=== PATIENT | female | born 1975 | race Caucasian/White ===

== ENCOUNTER 2024-01-19 18:14 | Observation (INO) | payer BC, SELFPAY ==
[2024-01-19] VITALS (10 sets, daily range): BP systolic 119–150; BP diastolic 67–90; BMI 34.8; BMI 34.6
[2024-01-19 12:45] LABS: % Basophils 0.9 % (0-2); % Eosinophils 9.5 % (0-6); % Immature Granulocytes 0.4 % (0-0.5); % Lymphocytes 23.5 % (20.5-51.1); % Monocytes 6.3 % (1.7-9.3); % Neutrophils 59.4 % (42.2-75.2); Absolute Basophils 0.1 10^3/uL (0-0.2); Absolute Eosinophils 0.5 10^3/uL (0-0.7); Absolute Lymphocytes 1.3 10^3/uL (1.2-3.4); Absolute Monocytes 0.4 10^3/uL (0.1-0.6); Absolute Neutrophils 3.4 10^3/uL (1.4-6.5); Hematocrit 37.9 % (37.0-47.0); Mean Corp Hgb Conc. 34.3 g/dL (33.0-37.0); Mean Corpuscular Hgb 29.5 pg (27.0-31.0); Mean Corpuscular Volume 86.1 fL (81.0-99.0); Mean Platelet Volume 9.8 fL (7.4-10.4); Nucleated Red Blood Cells % 0 %; Platelet Count 299 10^3/uL (130-400); Red Cell Dist. Width 12.7 % (11.5-14.5); White Blood Cell Count 5.7 10^3/uL (4.8-10.8)
[2024-01-19 12:59] LABS: ALT (SGPT) 27 U/L (0-35); AST (SGOT) 31 U/L (14-36); Albumin 4.6 g/dl (3.5-5.0); Alkaline Phosphatase 69 U/L (38-126); Blood Urea Nitrogen 10 mg/dl (7-17); Calcium 9.8 mg/dl (8.4-10.2); Carbon Dioxide 27 mmol/L (22-30); Chloride 101 mmol/L (98-107); Glucose 100 mg/dl (70-99); Potassium 4.1 mmol/L (3.5-5.1); Sodium 137 mmol/L (135-145); Total Protein 7.9 g/dl (6.3-8.2); eGFR > 60.00
--- NOTE | 2024-01-19 14:54 | ED.CVA ---
History of Present Illness
General
Chief Complaint: CVA/TIA Symptoms
Source: patient and family
Exam Limitations: none
Time Seen by Provider: 01/19/24 13:43
Nursing documentation reviewed up to this point in time: agreed with
Onset of Stroke Symptoms
Onset of symptoms known: Yes
Date of onset of symptoms: 01/19/24
Time of onset of symptoms: 06:30
Travel History
Have you had any contact with someone who has COVID-19?: No
Do you have any symptoms of coronavirus? Fever > 100 degrees, chills, cough, shortness of breath, sore throat, loss of taste or smell, muscle aches, or headache?: No
History of Present Illness
History of Present Illness:
48-year-old female with past medical history of retinal issues follow-up with ophthalmology presenting to the emergency department today with concerns of complete vision loss to the left side lasting 5 minutes earlier this morning. Full resolution
since. She was seen by ophthalmology prior to arrival here who did a evaluation did not show any obvious cause of the eye itself no signs of retinal issues and no obvious findings on funduscopic evaluation. There were concern of potential
strokelike syndrome.
Review of Systems
Review of Systems
Allergies reviewed?: Yes
All Other Systems: ROS reviewed and negative except as documented in HPI and ROS
Phy Exam
Physical Exam
Physical Exam:
GENERAL: Alert , in no apparent distress
EYE: Normal funduscopic evaluation, pupils equal and reactive
NECK: Supple, no significant adenopathy.
ENT: o/p clr, mmm.
CARDIAC: Regular rate and rhythm .
LUNGS: Clear breath sounds bilaterally, no acute respiratory distress, no wheezes/rales/rhonchi
ABDOMEN: Soft, without focal tenderness, no r/g, no cvat
NEUROLOGICAL: Alert and oriented, no focal neuro deficits
SKIN: Warm and dry, skin intact.
MUSCULOSKELETAL: No edema, well perfused.
PSYCH: Normal and appropriate interaction.
Course
Orders/Labs/Results
Orders:
Orders
01/19/24 12:27
CT Head W/o Iv Contrast Urgent
Comment:
Reason For Exam: floaters earlier this morning
01/19/24 12:33
Cardiovascular Evaluation Urgent
Comment: ADD
Complete Blood Count/With Diff Urgent
Comprehensive Metabolic Panel Urgent
Erythrocyte Sed Rate Urgent
Comment: ADD ON
Glycohemoglobin (HgbA1c) Urgent
01/19/24 14:34
Add On- LAB Urgent
Tests Added?: esr
01/19/24 14:42
EKG [Electrocardiogram (*1)] Urgent
Reason for Study: TIA/Stroke
EKG- Treatment ONCE
01/19/24 15:04
CT Head & Neck Angio W/wo IV Urgent
Reason For Exam: monocular vision loss left sided, NEURO rec'd CTA
01/19/24 16:07
NEUROLOGY CONSULT Urgent
Consulting Provider: Gelacio Saini
Was physician already notified: Yes
01/19/24 16:08
Add On- LAB Routine
Comments:: Please add to today's labs or draw as routine
Tests Added?: TSH reflex, Ferritin, Folate, Vit. B12, ESR, CRP
MR Brain W/o & With Contrast Routine
Comment:
Reason For Exam: special attention to orbits, visual loss on left
Recent pill cam endoscopy?: No
01/19/24 16:09
Add On- LAB Routine
Comments:: Please add to today's labs or draw as routine
Tests Added?: BRYN, Lyme, HgbA1C
01/19/24 16:10
Add On- LAB Routine
Comments:: Please add to today's labs or draw as routine
Tests Added?: lipid profile
01/19/24 16:27
BRYN, IgG Reflex to HEp-2 [S] Routine
Comment: TO BE DRAWN
C-Reactive Protein Routine
Comment: TO BE DRAWN
Ferritin Routine
Comment: TO BE DRAWN
Folate Routine
Comment: TO BE DRAWN
Lyme Progressive Routine
Comment: TO BE DRAWN
TSH Reflex To Free T4 Routine
Comment: TO BE DRAWN
Vitamin B12 Routine
Comment: TO BE DRAWN
01/19/24 17:00
Aspirin Chewable [Low Strength Aspirin] 81 mg PO DAILY
01/19/24 17:11
Admit/Transfer Patient As Directed
Co-Sign Provider:
Level of Care: Observation services
Assign to:: Telemetry
Physician / Group: Kacey Ansari
Diagnosis: Transient vision loss unclear etiology
Reason for Telemetry: CVA/TIA
Date to Stop Telemetry: 01/22/24
Time to Stop Telemetry: 11:00
01/19/24 17:15
Code Status As Directed
Resuscitation Status: Full Code
01/22/24 11:00
DC Protocol for Telemetry ONCE
Abnormal Lab Results
01/19/24
12:33
Eosinophils % 9.5 H %
(0-6)
Glucose 100 H mg/dl
(70-99)
01/19/24 12:33
01/19/24 12:33
Vital Signs
Initial and Last Documented VS:
Initial Vital Signs
Temp Pulse Resp BP Pulse Ox
98.8 F 72 17 150/90 99
01/19/24 12:24 01/19/24 12:24 01/19/24 12:24 01/19/24 12:24 01/19/24 12:24
Last Documented Vital Signs
Temp Pulse Resp BP Pulse Ox
98.8 F 72 17 141/89 99
01/19/24 12:24 01/19/24 12:24 01/19/24 12:24 01/19/24 15:00 01/19/24 15:45
MDM/Problems Addressed
MDM/Problems Addressed:
48-year-old female presenting to the emergency department today with concerns of complete vision loss for roughly 5 minutes earlier today. She was seen by ophthalmology and they do not believe this is an specifically eye related issue and is
concerned potential strokelike process or amaurosis. She is now asymptomatic at this clinic have very vague blurred vision though. 20/60 in the left eye 20/25 on the right side. Had normal pressures prior to arrival at the [facility]. ESR
added but seems less likely to be temporal arteritis no headache no discomfort on exam. Plan to admit for further assessment.
*Critical Care Note
Total Time (30-74mins, 75-104mins- exclusive of procedures): Not Applicable
ED Attending Note
-
Portions of this chart may have been created with voice recognition software.� Occasional wrong word or��sound alike� substitutions may have occurred due to the inherent limitations of voice recognition software.
Discharge Plan
Departure
Patient Disposition: Admit
Date of Disposition: 01/19/24
Time of Disposition: 14:57
Admit to: Telemetry
Admit to doctor: Elan
Presentation/result/management discussed w/ accepting MD/DO: Hospitalist
Patient with high blood pressure during this ER visit?: No
Condition: Good
Covid-19: Not Applicable
Discharge Problem:
Monocular vision loss
Prescriptions:
No Action
hydroxyzine HCl 25 mg tablet
25 mg PO HS
albuterol sulfate [ProAir HFA] 90 mcg/actuation Hfa Aerosol Inhaler
2 puff INHALATION R QIDPRN PRN (Reason: sob)
fluoxetine 20 mg Capsule
20 mg PO DAILY
dextroamphetamine-amphetamine [Adderall XR] 25 mg Capsule,Extended Release 24hr
25 mg PO DAILY
Referrals:
Areli Waggoner DO [Family Provider] -
Interventions
Interventions:
*Risk Screen - Suicide Last Done: 01/19/24 13:22
*General Assessment Last Done: 01/19/24 13:22
*Neglect/Abuse Screening Last Done: 01/19/24 13:22
ED- Fall Risk Assessment Last Done: 01/19/24 13:35
*ED COVID-19 Vaccine History Last Done: 01/19/24 13:22
ED- Pulmonary Assessment Last Done: 01/19/24 13:22
ED- Neurological Assessment Last Done: 01/19/24 14:14
ED- Cardiac Assessment Last Done: 01/19/24 13:22
ED Swallowing Screen Last Done: 01/19/24 13:22
Discharge Date and Time
Print Language: ITALIAN
--- NOTE | 2024-01-19 14:59 | HPS.HSE ---
Family Physician
-
Family Physician: Areli Waggoner
Chief Complaint
-
Transient left eye vision loss
History of Present Illness
48-year-old female Asthma ADHD Depression hx Fatty Liver Dz diverticulitis retinal detachment cataracts repair p/w two episodes transient vision loss left eye over the last 24 hrs lasting minutes each time. Both episodes occurring during transition
from dark to light areas. She was seen by ophthalmology outpt. Per reports, evaluation showed no obvious eye pathology causing symptoms- no signs of retinal issues or other acute abn's noted on funduscopic evaluation- prompting referral to ED for
further evaluation, possible Amaurosis fugax. Denies fever chills headaches itchy eyes, eye pain, current blurry vision or blindness, chest/abd pain palpitations, shortness of breath coughing, nausea vomiting diarrhea constipation. Wears glasses.
VSS, CT Head noted no acute abn's, labs were relatively unremarkable except for Eosinophil elevation unclear etiology.
Medical History
Past Medical History
Past Medical History: Reports Other (as above)
Past Surgical History: Reports Other (as above)
Social History
Tobacco: Non-smoker
Alcohol: None
Drug: None
Personal:
Living: With Family
Family History
Family History: Other (reports history of strokes on mother side of family)
Allergies / Home Medications
Allergies reflects when Allergies were last updated in [facility].
Home Medications with original date entered in [facility]
Allergy/Medication List:
Allergies
Allergy/AdvReac Type Severity Reaction Status Date / Time
Cephalosporins Allergy Rash Verified 01/19/24 16:25
penicillin V Allergy Unknown Verified 01/19/24 16:25
Penicillins Allergy Unknown Verified 01/19/24 16:25
Home Medications
albuterol sulfate 90 mcg/actuation aerosol inhaler (ProAir HFA) 2 puff inhalation R QIDPRN PRN sob 01/19/24
dextroamphetamine-amphetamine ER 25 mg 24hr capsule,extend release (Adderall XR) 25 mg PO DAILY 01/19/24
fluoxetine 20 mg capsule 20 mg PO DAILY 01/19/24
hydroxyzine HCl 25 mg tablet 25 mg PO HS 01/19/24
Review of Systems
-
A 12 point ROS was completed and negative except as noted: Yes
Constitutional: Reports Sleep Disturbance (as below)
Physical Exam
Vital Signs
Vital Signs
Temp Pulse Resp BP Pulse Ox
98.8 F 72 17 127/80 100
01/19/24 12:24 01/19/24 12:24 01/19/24 12:24 01/19/24 14:01 01/19/24 14:15
Physical Exam
General: Other (as below)
Laboratory Results
-
01/19/24 12:33
01/19/24 12:33
Laboratory Results
Total Bilirubin 1.0 mg/dl (0.2-1.3) 01/19/24 12:33
AST 31 U/L (14-36) 01/19/24 12:33
ALT 27 U/L (0-35) 01/19/24 12:33
Alkaline Phosphatase 69 U/L (38-126) 01/19/24 12:33
Impression/Plan
-
ROS
General: Denies fever chills night sweats unexpected weight loss
Neuro: Denies seizure shaking loss of consciousness dizziness vertigo
Psych: denies depression hallucinations confusion manic episodes
Endocrine: Denies polyuria polydipsia polyphagia heat/cold intolerance
HEENT: Denies epistaxis reports 2 episodes of transient vision loss left eye lasting for minutes at a time
Pulmonary: denies coughing hemoptysis sneezing sob dyspnea on exertion
Cardiovascular: denies chest pain palpitations leg swelling
Hematology: denies signs symptoms of anemia easy bruising/bleeding
Gastrointestinal: denies nausea vomiting diarrhea constipation hematemesis hematochezia melena
Genito-Urinary: denies retention incontinence dysuria
Musculoskeletal: denies joint pain weakness
Dermatology: denies rash laceration bruising
Physical Exam
General: No pallor, cyanosis, or jaundice.
HEENT: Throat clear. PERRLA Normocephalic atraumatic EOMI
NECK: Supple. No JVD Carotid Bruits
RESPIRATORY: Lungs clear to auscultation. No crackles wheezes stridor
CVS: S1, S2 normal. RRR. No murmur, rub or gallop.
ABDOMEN: Soft, non-tender. No distension. BS+/normal.
EXTREMITIES: No peripheral cyanosis or edema.
PROFESSIONAL BASS FISHER: AOx3
IMPRESSION:
48-year-old female Asthma ADHD Depression hx Fatty Liver Dz diverticulitis retinal detachment cataracts repair p/w two episodes transient vision loss left eye over the last 24 hrs lasting minutes each time. Both episodes occurring during transition
from dark to light areas. She was seen by ophthalmology outpt. Per reports, evaluation showed no obvious eye pathology causing symptoms- no signs of retinal issues or other acute abn's noted on funduscopic evaluation- prompting referral to ED for
further evaluation, possible Amaurosis fugax. Denies fever chills headaches itchy eyes, eye pain, current blurry vision or blindness, chest/abd pain palpitations, shortness of breath coughing, nausea vomiting diarrhea constipation. Wears glasses.
VSS, CT Head noted no acute abn's, labs were relatively unremarkable except for Eosinophil elevation unclear etiology.
PLAN:
#Transient left eye blindness unclear etiology
Telemetry observation
Neuro eval appreciated
Follow-up CTA head and neck, MRI brain
ECHO pending
empiric ASA as per neuro
lipid panel within goal
A1c pending
#Eosinophilia
Unclear etiology
Monitor for now
#Asthma
Reports well-controlled, last exacerbation in August 2023
Continue as needed albuterol inhaler
Stable respiratory status on room air
#ADHD
Continue home Adderall
#Depression/anxiety
Continue home fluoxetine, dose recently reduced as per patient
Continue home bedtime hydroxyzine
DVT prophylaxis SCDs
GI prophylaxis not indicated at this time
Meds reconciled and resume as appropriate
Full code
I spent a total of 80 minutes with the patient or on the floor. More than 50% of this time involved counseling and coordination of care.
[2024-01-19 15:06] LABS: Erythrocyte Sed Rate 16 mm/hour (0-20)
--- NOTE | 2024-01-19 15:32 | CON.NEURO ---
Neuro Assessment/Plan
Assessment
IMPRESSIONS/RECOMMENDATIONS:
Abrupt change in vision involving the left eye beginning approximately 48 hours ago
Most likely due to acephalgic migraine. Differential diagnosis would include nonarteritic ischemic optic neuropathy. Patient is not of an age for temporal arteritis.
Plan
Check CT angiogram head and neck
Check MRI of brain with special attention to orbits
Check echocardiogram
Aspirin 81 mg daily until greater information regarding patient symptomatology can be ascertained
Continue patient's usual outpatient medications
Check lipid profile, consider initiation of the use of atorvastatin
Will continue to follow patient. Thank you.
Consultation
Order
Date of Consultation: 01/19/24
Requesting Provider: Emergency department provider
Reason for Consult: Visual loss
Subjective/Objective
Subjective Data
Date of Service: January 19, 2024
Right-handed
2003 had retinal surgery in the left eye with dark curtain taking place in vision. Eventually diagnosed with retinal detachment. Subsequent surgery for cataract resection needed. Followed by laser surgery for scar tissue build-up in the eye.
Persistent floaters in vision.
New onset while in the dark 1 week ago of a triangle shape which resolved after few minutes. No associated symptoms. No change with cross-cover of either eye.
Yesterday, sudden darkness transitioning from bright to dark location which resolved within 1 minute. Recurrent even sense of lost vision today in the left eye, resolving after 1 minute at 06:30.
Patient presented to this hospital's emergency department with acute onset of retinal issues prompting referral from her water analyst.
No headache before, during or after events. Usual headaches are menstrual-related no menses since June 2023.
Objective Data
Vital Signs
Temp Pulse Resp BP Pulse Ox
37.1 C 72 17 141/89 100
01/19/24 12:24 01/19/24 12:24 01/19/24 12:24 01/19/24 15:00 01/19/24 15:00
Lab Results
01/19/24 12:33
01/19/24 12:33
Sodium 137 mmol/L (135-145) 01/19/24 12:33
Potassium 4.1 mmol/L (3.5-5.1) 01/19/24 12:33
BUN 10 mg/dl (7-17) 01/19/24 12:33
Glucose 100 mg/dl (70-99) H 01/19/24 12:33
Calcium 9.8 mg/dl (8.4-10.2) 01/19/24 12:33
Patient Allergies
Cephalosporins Allergy (Unverified 01/19/24 12:24)
Rash
penicillin V Allergy (Unverified 01/19/24 12:24)
Unknown
Penicillins Allergy (Unverified 01/19/24 12:24)
Unknown
Review of Systems
-
History Source: Patient
All other systems: Reviewed and negative
EENT: Decreased Vision; Negative Swallowing Difficulty
Respiratory: Negative Trouble Breathing
Cardiac: Negative Chest Pain
Abdomen/GI: Negative Incontinence of Stool
Genitourinary: Negative Incontinence
Musculoskeletal: Negative Back Pain or Neck Pain
Neuro: Negative Dizzy or Headache
Physical Exam
-
General: No Apparent Distress and Appears Stated Age
Eyes: OU Absent Papilledema, Round OU, [place] Conjunctivae and No Ptosis
HEENT: Anicteric and Moist Mucous Membranes
Neck: Full Range of Motion
Respiratory: No Dyspnea
Cardiac: No JVD
GI: Non-distended
Skin: Unremarkable
Extremities: No Clubbing, No Cyanosis and No Edema
Psych: Intact Judgement/Insight
Extended Neurological Exam
Mood & Affect: Mood Unremarkable and Affect Unremarkable
Attention Span & Concentration: Awake, Alert, Interactive and No Difficulty with 2 Step Request
Memory: Unremarkable
Tremor: Hand Tremor Absent and Head Tremor Absent
Speech: Quality Unremarkable and Quantity Unremarkable
Cranial Nerve II: Left Eye: Pupillary Reactivity Unremarkable, Pupillary Size Unremarkable and Visual [place] Intact
Cranial Nerve II: Right Eye: Pupillary Reactivity Unremarkable, Pupillary Size Unremarkable and Visual [place] Intact
Cranial Nerves III, IV, : Extraocular Movement: Extraocular Movement Full in all Directions
Cranial Nerve VII: Facial Symmetry: Normal Facial Symmetry
Cranial Nerve VIII: Hearing: Unremarkable Hearing to Normal Conversational Volume
Cranial Nerves IX, X: Palate Movement: Palate Elevation Symmetric
Cranial Nerve XI: Shoulder Shrug: Unremarkable
Cranial Nerve XII: Tongue Protusion: Midline
Muscle Strength, Overall: Full Throughout
Muscle Bulk & Tone: Bulk Unremarkable and Tone Unremarkable
Pronator Drift: No Drift in Upper Extremities
Deep Tendon Reflexes: Unremarkable Throughout
Touch Sensation: Unremarkable
Coordination: Upldiq-tixi-uhzbgg Testing Unremarkable and Qeef-Xjgl-Lani movements intact bilaterally
Babinski Sign: Absent Bilaterally
Gait & Station: Up from Seated Without Problem
Data Reviewed
-
CT-A: Pending
CT Head: Report Reviewed
Labs: Ordered and Report Reviewed
Lipid Profile: Ordered
HgbA1C: Ordered
Reviewed with: Physician Beauty Artist and Patient
Old Records: Summarized
Medications
-
Home Medications
�Medication �Instructions �Recorded
albuterol sulfate 90 mcg/actuation 2 puff inhalation R QIDPRN PRN sob 01/19/24
aerosol inhaler (ProAir HFA)
dextroamphetamine-amphetamine ER 25 mg PO DAILY 01/19/24
25 mg 24hr capsule,extend release
(Adderall XR)
fluoxetine 20 mg capsule 20 mg PO DAILY 01/19/24
hydroxyzine HCl 25 mg tablet 25 mg PO HS 01/19/24
Past History
Past History
ED Past Medical History: Asthma, Psychiatric (Major depression, ADHD) and Other (Eosinophilic esophagitis, diverticulitis, detached retina repair, multigoiter thyroid, non-alcoholic fatty liver)
ED Past Surgical History: (X 3), Gynecological (Tubal ligation) and Other (Rhinoplasty, ovarian cyst resection)
Social History
Tobacco: Non-smoker
Alcohol: None
Drug: None
Personal:
Living: with family
Employment: Employed
Family History
Family History: Other (Reviewed and noncontributory except for lupus and the patient's mother)
[2024-01-19] MEDS: LOW STRENGTH ASPIRIN 81 MG PO (16:22)
[2024-01-19 17:12] LABS: HDL Cholesterol 87 mg/dl; LDL Cholesterol, Calculated 66 mg/dl; Total Cholesterol 174 mg/dl (50-199); Triglyceride 108 mg/dl (10-149); Very Low Density Lipoprotein 21 mg/dl (0-30)
[2024-01-19 17:19] LABS: TSH Reflex To Free T4 1.26 uIU/ml (0.47-4.68)
[2024-01-19 17:23] LABS: Ferritin 21.3 ng/ml (6.24-137)
[2024-01-19 17:55] LABS: Folate 19.6 ng/ml (2.76-20); Vitamin B12 316 pg/ml (239-931)
[2024-01-19 18:37] LABS: C-Reactive Protein < 5.00 mg/L (0.0-10.00)
[2024-01-20] MEDS: ATARAX 25 MG PO (00:35)
[2024-01-20 03:10] VITALS: BP 137/83
[2024-01-20 07:00] VITALS: BP 110/66
[2024-01-20 07:08] LABS: % Eosinophils 9.4 % (0-6); % Immature Granulocytes 0.2 % (0-0.5); % Monocytes 7.7 % (1.7-9.3); % Neutrophils 57.7 % (42.2-75.2); Absolute Basophils 0.1 10^3/uL (0-0.2); Absolute Eosinophils 0.5 10^3/uL (0-0.7); Absolute Lymphocytes 1.2 10^3/uL (1.2-3.4); Absolute Monocytes 0.4 10^3/uL (0.1-0.6); Absolute Neutrophils 2.8 10^3/uL (1.4-6.5); Hematocrit 35.6 % (37.0-47.0); Hemoglobin 12.4 g/dL (12.0-16.0); Mean Corp Hgb Conc. 34.8 g/dL (33.0-37.0); Mean Corpuscular Hgb 29.2 pg (27.0-31.0); Mean Corpuscular Volume 83.8 fL (81.0-99.0); Mean Platelet Volume 9.7 fL (7.4-10.4); Nucleated Red Blood Cells % 0 %; Platelet Count 283 10^3/uL (130-400); Red Blood Cell Count 4.25 10^6/uL (4.20-5.40); Red Cell Dist. Width 12.9 % (11.5-14.5); White Blood Cell Count 4.8 10^3/uL (4.8-10.8)
--- NOTE | 2024-01-20 07:28 | W.PN.HOSP.TC ---
Today's Communication/Plan
-
discharge
Assessment / Plan
Assessment / Plan
Physical Exam
General: No pallor, cyanosis, or jaundice.
HEENT: Throat clear. PERRLA Normocephalic atraumatic EOMI
NECK: Supple. No JVD Carotid Bruits
RESPIRATORY: Lungs clear to auscultation. No crackles wheezes stridor
CVS: S1, S2 normal. RRR. No murmur, rub or gallop.
ABDOMEN: Soft, non-tender. No distension. BS+/normal.
EXTREMITIES: No peripheral cyanosis or edema.
MINE LABORER: AOx3
IMPRESSION:
48-year-old female Asthma ADHD Depression hx Fatty Liver Dz diverticulitis retinal detachment cataracts repair p/w two episodes transient vision loss left eye over the last 24 hrs lasting minutes each time. Both episodes occurring during transition
from dark to light areas. She was seen by ophthalmology outpt. Per reports, evaluation showed no obvious eye pathology causing symptoms- no signs of retinal issues or other acute abn's noted on funduscopic evaluation- prompting referral to ED for
further evaluation, possible Amaurosis fugax. Denies fever chills headaches itchy eyes, eye pain, current blurry vision or blindness, chest/abd pain palpitations, shortness of breath coughing, nausea vomiting diarrhea constipation. Wears glasses.
VSS, CT Head noted no acute abn's, labs were relatively unremarkable except for Eosinophil elevation unclear etiology.
PLAN:
#Transient left eye blindness unclear etiology
CTA neck appreciated:
1. No CTA evidence for internal carotid artery stenosis, occlusion, or dissection.
2. 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
3. Moderate discogenic degenerative disease at C3/C4, C4/C5, and C5/C6.
4. MULTINODULAR THYROID GOITER with a large 3.0 cm nodule in the right lobe of the thyroid gland causing minimal compression on the trachea.
Multinodular thyroid goiter is known to patient who gets regular follow up check up with Mammography Tech
CTA head appreciated:
1. Scleral buckle around the left lobe and nonvisualization of the left lens which could be secondary to previous repair of a retinal detachment and lens replacement for treatment of cataracts.
2. 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
3. 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
4. 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
5. No CTA evidence for stenosis in the internal carotid, middle cerebral, or anterior cerebral arteries.
MRI brain/face/head/neck no acute abn's
ECHO appreciated EF 55-60% no acute abn's
cont ASA as per neuro
lipid panel within goal
A1c 5.6 non-diabetic
Neuro eval appreciated
-symptoms possible sequelae of previous retinal injury vs migraine visual aura
-TIA less likely however daily ASA recommended for basilar artery stenosis
#[correction to prior documentation] pt does not have significant Eosinophilia, percentage is elevated but absolute eosinophil count is normal
#Asthma
Reports well-controlled, last exacerbation in August 2023
Continue as needed albuterol inhaler
Stable respiratory status on room air
#ADHD
Continue home Adderall
#Depression/anxiety
Continue home fluoxetine, dose recently reduced as per patient
Continue home bedtime hydroxyzine
DVT prophylaxis SCDs
GI prophylaxis not indicated at this time
Meds reconciled and resume as appropriate
Full code
Medically stable for discharge home with outpatient follow up recommendations.
Total Time Preparing Discharge __50 minutes including examination of the patient, summary of the hospital stay, instructions for continuing care to all relevant caregivers; and preparation of discharge records, prescriptions, and referral
forms if necessary.
Anticipated Discharge: Today
Subjective/Interval History
-
Date of Service: January 20, 2024
No acute distress. Reports feeling well. Denies new acute issues at this time.
Objective Data
-
Labs:
Laboratory Results
01/20/24
06:30
WBC 4.8
Hgb 12.4
Hct 35.6 L
Plt Count 283
Sodium Pending
Potassium Pending
Chloride Pending
Carbon Dioxide Pending
BUN Pending
Creatinine Pending
Glucose Pending
Calcium Pending
Vital Signs:
Vital Signs
Temp Pulse Resp BP Pulse Ox
97.9 F 77 18 137/83 98
01/20/24 03:10 01/20/24 03:10 01/20/24 03:10 01/20/24 03:10 01/20/24 03:10
I&O
01/19/24 01/20/24 01/21/24
06:59 06:59 06:59
Intake Total 480 / 480
Balance 480 / 480
[2024-01-20 07:44] LABS: Blood Urea Nitrogen 9 mg/dl (7-17); Calcium 9.2 mg/dl (8.4-10.2); Carbon Dioxide 26 mmol/L (22-30); Chloride 105 mmol/L (98-107); Estimated Creatinine Clearance > 125 ml/min; Glucose 102 mg/dl (70-99); Potassium 4.1 mmol/L (3.5-5.1); Sodium 137 mmol/L (135-145); eGFR > 60.00
[2024-01-20] MEDS: LOW STRENGTH ASPIRIN 81 MG PO (07:53)
[2024-01-20] MEDS: PROZAC 20 MG PO (07:53)
[2024-01-20 08:37] LABS: Glycohemoglobin (HgbA1c) 5.6 % (4.0-5.6)
--- NOTE | 2024-01-20 09:26 | W.PN.NEURO.1 ---
Addendum entered and electronically signed by John Holm MD 01/20/24 13:18:
Is on evaluate patient reviewed the note by Judi roman and agree with the findings and the following comments:
48-year-old woman with a past med history of left-sided retinal artery tear with repair, migraine headaches with aura and family history of migraines presented hospital with 2 episodes of painless short lasting left eye vision loss. These happen
when moving from dark to light setting. Symptoms are completely resolved at this point. Did have vision migraine aura a week before with zig zag lines. No history of TIA or stroke.
MRI brain and orbit with no acute infarct
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
No carotid stenosis
No signs of optic neuritis
Assessment: Suspect this is most likely either sequelae from her previous retinal injury as she was moving from dark to light setting when the symptoms occurred, versus migraine visual aura (although symptoms are a bit short lasting for this).
Less likely a TIA but still would be best to be on aspirin 81 mg daily given the finding of basilar stenosis
Recommendations
-Aspirin 81 mg daily
-Reassured her as far as migraine aura that would be benign problem
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
-Not necessary to pursue any interventional pain in the basilar artery which should not be intervened on given high risk send medical therapy is best
-No further workup or monitoring no barriers to discharge from my POV
Original Note:
Today's Communication / Plan
-
MRI negative
Echo negative
-continue ASA
Neuro Assessment/Plan
Assessment
IMPRESSIONS/RECOMMENDATIONS:
Abrupt change in vision involving the left eye beginning approximately 48 hours ago
Most likely due to acephalgic migraine visual aura vs retina problem vs less likely YIA
Plan
reviewed CT angiogram head and neck
Neck CTA
1. No CTA evidence for internal carotid artery stenosis, occlusion, or dissection.
2. 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
3. Moderate discogenic degenerative disease at C3/C4, C4/C5, and C5/C6.
4. MULTINODULAR THYROID GOITER with a large 3.0 cm nodule in the right lobe of the thyroid gland causing minimal compression on the trachea.
HEAD CTA:
1. Scleral buckle around the left lobe and nonvisualization of the left lens which could be secondary to previous repair of a retinal detachment and lens replacement for treatment of cataracts.
2. 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
3. 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
4. 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
5. No CTA evidence for stenosis in the internal carotid, middle cerebral, or anterior cerebral arteries.
-MRI negative
-still need echocardiogram
continue Aspirin 81 mg daily, should remain on daily ASA d/t basilar artery stenosis
-LDL 66
-should follow up with ophthalmology
-can follow up as an outpatient 6-8 weeks
Subjective/Objective
Subjective Data
Date of Service: January 20, 2024
Pt feels well. Nonew neurologic complaints. No additional episodes of loss of vision
Objective Data
Vital Signs
Temp Pulse Resp BP Pulse Ox
97.6 F 70 18 110/66 98
01/20/24 07:00 01/20/24 07:00 01/20/24 07:00 01/20/24 07:00 01/20/24 07:00
Lab Results
01/20/24 06:30
01/20/24 06:30
Sodium 137 mmol/L (135-145) 01/20/24 06:30
Potassium 4.1 mmol/L (3.5-5.1) 01/20/24 06:30
BUN 9 mg/dl (7-17) 01/20/24 06:30
Glucose 102 mg/dl (70-99) H 01/20/24 06:30
Calcium 9.2 mg/dl (8.4-10.2) 01/20/24 06:30
LDL Cholesterol, Calc 66 mg/dl 01/19/24 12:33
Vitamin B12 316 pg/ml (239-931) 01/19/24 16:27
Patient Allergies
Cephalosporins Allergy (Verified 01/19/24 21:18)
Rash
penicillin V Allergy (Verified 01/19/24 21:18)
Unknown
Penicillins Allergy (Verified 01/19/24 21:18)
Unknown
LDL Level: <70, no statin needed
Review of Systems
-
History Source: Patient
All other systems: Reviewed and negative
Constitutional: No Symptoms
EENT: No Symptoms Reported
Respiratory: No Symptoms
Cardiac: No Symptoms
Abdomen/GI: No Symptoms
Genitourinary: No Symptoms
Musculoskeletal: No Symptoms
Skin: No Symptoms
Neuro: No Symptoms
Endocrine: No Symptoms
Hematologic / Lymphatic: No Symptoms
Allergy / Immunology: No Symptoms
Physical Exam
-
General: Well Developed, Well Nourished and No Apparent Distress
Eyes: Round OU, No Ptosis and PERRLA
HEENT: Normocephalic
Neck: No Bruits Bilaterally
Respiratory: Clear to Auscultation
Cardiac: Regular Rhythm
GI: Normal Bowel Sounds
Skin: Unremarkable
Extremities: No Clubbing
Psych: Unremarkable
Extended Neurological Exam
Mood & Affect: Mood Unremarkable
Attention Span & Concentration: Awake, Alert, Interactive and No Difficulty with 2 Step Request
Memory: Unremarkable
Tremor: Hand Tremor Absent and Head Tremor Absent
Involuntary Movement: None
Speech: Quality Unremarkable, Quantity Unremarkable and Rate of Production Unremarkable
Cranial Nerve II: Left Eye: Pupillary Reactivity Unremarkable and Pupillary Size Unremarkable
Cranial Nerve II: Right Eye: Pupillary Reactivity Unremarkable and Pupillary Size Unremarkable
Cranial Nerves III, IV, : Extraocular Movement: Extraocular Movement Left
Cranial Nerve V: Facial Sensation: Facial Sensation Unremarkable to Cold
Cranial Nerve VII: Facial Symmetry: Normal Facial Symmetry
Cranial Nerve VIII: Hearing: Unremarkable Hearing to Normal Conversational Volume
Cranial Nerves IX, X: Palate Movement: Palate Elevation Symmetric
Cranial Nerve XI: Shoulder Shrug: Unremarkable
Cranial Nerve XII: Tongue Protusion: Midline
Muscle Strength, Overall: Full Throughout
Muscle Bulk & Tone: Bulk Unremarkable and Tone Unremarkable
Pronator Drift: No Drift in Upper Extremities and No Drift in Lower Extremities
Deep Tendon Reflexes: Unremarkable Throughout
Cold Sensation: Unremarkable
Vibration Sensation: Unremarkable
Touch Sensation: Unremarkable
Coordination: Perqyo-reax-wswggd Testing Unremarkable
Data Reviewed
-
CT-A: Report Reviewed
CT Head: Report Reviewed
MRI Head: Report Reviewed
Echocardiogram: Report Reviewed
Labs: Report Reviewed
Lipid Profile: Report Reviewed
HgbA1C: Report Reviewed
--- NOTE | 2024-01-20 09:43 | PTOTSP ---
Therapist spoke with the patient, who was ambulating in the room independently at the time. The patient denied the need for PT, stating her symptoms were purely visual and had no other changes in function (strength, balance, etc). Patient is
agreeable to PT signing off and is aware our services are available if needs arise. PT will sign off at this time.
[2024-01-20 11:00] VITALS: BP 120/72
--- NOTE | 2024-01-20 12:14 | CM ---
Reviewed chart, met with patient to obtain information for assessment. Patient stated that she lives with her spouse in a townhouse with 3 steps to enter. She described herself as independent with her ADLs, personal care, dressing and bathing. She
ambulates without device. Patient denied any DME in her home except for a Nebulizer. 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
Patient confirmed that she can do her own pen tester, cooking, cleaning and laundry.
She has never had VN or been to a SNF.
Obs letter reviewed.
Patient has a prescription plan and uses Areli Waggoner MD
Patient stated that she does not feel that she has any needs and would like to return home when patient.
Plan: Case management will continue to follow and assist with discharge planning. Patient would like to return home, no needs.
--- NOTE | 2024-01-20 13:26 | PTOTSP ---
pt seen bedside. reports no difficulty with functional ability. reports vision is back to baseline, which is decreased vision in lower left quadrant. no acute OT needs identified at this time, will sign off.
--- NOTE | 2024-01-20 14:57 | W.DCSUMMARY ---
Discharge Summary
Discharge Data
Date of Admission: 01/19/24
Date of Discharge: 01/20/24
-
Pending Results: Yes
Additional Pending Results:
lyme serologies
Hospital Course
48-year-old female Asthma ADHD Depression hx Fatty Liver Dz diverticulitis retinal detachment cataracts repair p/w two episodes transient vision loss left eye over the last 24 hrs lasting minutes each time. Both episodes occurring during transition
from dark to light areas. She was seen by ophthalmology outpt. Per reports, evaluation showed no obvious eye pathology causing symptoms- no signs of retinal issues or other acute abn's noted on funduscopic evaluation- prompting referral to ED for
further evaluation, possible Amaurosis fugax. Denied fever chills headaches itchy eyes, eye pain, current blurry vision or blindness, chest/abd pain palpitations, shortness of breath coughing, nausea vomiting diarrhea constipation. Wears glasses.
VSS, CT Head noted no acute abn's, labs were relatively unremarkable. Transient left eye blindness unclear etiology
CTA neck appreciated:
1. No evidence internal carotid artery stenosis, occlusion, or dissection.
2. 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
3. Moderate discogenic degenerative disease at C3/C4, C4/C5, and C5/C6.
4. MULTINODULAR THYROID GOITER with a large 3.0 cm nodule in the right lobe of the thyroid gland causing minimal compression on the trachea.
Multinodular thyroid goiter is known to patient who gets regular follow up check up with her Turning Sander Tender
CTA head appreciated:
1. Scleral buckle around the left lobe and nonvisualization of the left lens which could be secondary to previous repair of a retinal detachment and lens replacement for treatment of cataracts.
2. 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
3. 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
4. 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
5. No CTA evidence for stenosis in the internal carotid, middle cerebral, or anterior cerebral arteries.
MRI brain/face/head/neck noted no acute abn's. ECHO appreciated EF 55-60% no acute abn's. ASA was continued as per neuro recommendations. Lipid panel within goal. A1c 5.6 non-diabetic. Neuro evaluated and assessed symptoms possibly sequelae of
previous retinal injury vs migraine visual aura. TIA less likely however daily ASA recommended for basilar artery stenosis. Medically stable, patient was discharged home with outpatient follow up recommendations.
Discharge Plan
-
Patient Disposition: Home (Routine Discharge)
Discharge Diagnosis/Procedures: Transient Left Eye Vision loss possible sequelae previous retinal injury vs migraine with aura, unlikely TIA, Basilar Artery Stenosis, moderate Cervical Discogenic Degenerative Disease, multinodular thyroid goiter,
ADHD, depression, asthma
Condition: Good
Diet: Regular
Activity: As tolerated
Driving Restrictions: As prior to admission
Bathing Restrictions: None
Activity Restrictions/Additional Instructions:
Please follow up with primary care provider in 1 week of discharge, continue follow up with Ophthalmology, and follow up with Neurology in 1-2 months of discharge.
Aspirin has been prescribed for basilar artery stenosis.
Please take medications as prescribed/recommended and follow up with primary care provider and/or other healthcare provider involved in your care for refills and/or further adjustment to your medication regimen as necessary.
Referrals:
John Holm MD [Active] - in one to two months
Areli Waggoner DO [Family Provider] - in one week
Prescriptions:
New
aspirin [Children's Aspirin] 81 mg Tablet,Chewable
81 mg PO DAILY 30 Days Qty: 30 0RF
Continued
hydroxyzine HCl 25 mg tablet
25 mg PO HS
albuterol sulfate [ProAir HFA] 90 mcg/actuation Hfa Aerosol Inhaler
2 puff INHALATION R QIDPRN PRN (Reason: sob)
fluoxetine 20 mg Capsule
20 mg PO DAILY
dextroamphetamine-amphetamine [Adderall XR] 25 mg Capsule,Extended Release 24hr
25 mg PO DAILY
Discharge Orders:
Discharge Patient (As Directed); Ordered 01/20/24
Ordered By: Kacey Ansari
Discharge Date and Time
Discharge Date/Time: 01/20/24 15:46
Print Language: MARSHALLESE
[2024-01-20 15:00] VITALS: BP 126/68
[2024-01-20 15:35] LABS: Lyme Antibody Screen, EIA Negative (Negative)
[2024-01-22 03:29] LABS: ANA, IgG Reflex to HEp-2 None Detected (None Detected)
== END 2024-01-20 15:46 | disposition home or self-care (01) ==
LOC: 3 WEST ACU 18:14
PROVIDERS: Emergency Medicine; ADMITTING PHYSICIAN Internal Medicine; CONSULT PHYSICIAN Psychiatry & Neurology Neurology; EMERGENCY PHYSICIAN Emergency Medicine; FAMILY PHYSICIAN Internal Medicine
DX: H53.122 Transient visual loss, left eye (principal); H53.8 Other visual disturbances; F90.9 Attention-deficit hyperactivity disorder, unspecified type; J45.909 Unspecified asthma, uncomplicated; K76.0 Fatty (change of) liver, not elsewhere classified; F32.9 Major depressive disorder, single episode, unspecified; D72.10 Eosinophilia, unspecified; F41.9 Anxiety disorder, unspecified; E04.2 Nontoxic multinodular goiter; M50.31 Other cervical disc degeneration, high cervical region; M50.321 Other cervical disc degeneration at C4-C5 level; Z88.1 Allergy status to other antibiotic agents; Z88.0 Allergy status to penicillin; Z87.19 Personal history of other diseases of the digestive system
CPT/HCPCS: 70450; 70496; 70498; 70543; 70553; 80048; 80053; 80061; 82607; 82728; 82746; 83036; 84443; 85025; 85652; 86038; 86140; 86618; 93005; 93306; 99285; A9575; G0378; Q9967

== ENCOUNTER → 2025-01-15 16:45 | Outpatient (REF) | payer BC, SELFPAY | LOC: WDC 16:45 | PROVIDERS: ATTENDING PHYSICIAN Obstetrics & Gynecology; FAMILY PHYSICIAN Internal Medicine | DX: Z12.31 Encounter for screening mammogram for malignant neoplasm of breast (principal) | CPT/HCPCS: 77063; 77067 ==